=== PATIENT | male | born 1995 | race African-American/Black ===

== ENCOUNTER 2017-04-15 09:35 | Emergency (ER) | payer MEDICAID ==
[~2017-04-15] VITALS: Ht 177.8 cm; Wt 91.0 kg
[2017-04-15 09:56] VITALS: BP 106/82
[2017-04-15] MEDS ORDERED: ACETAMINOPHEN 325MG TABLET PO ONE (13:00)
[2017-04-15 14:02] LABS: CLARITY URINE CLEAR (CLEAR); COLOR URINE YELLOW (YELLOW); GLUCOSE URINE NEGATIVE (NEGATIVE); KETONES URINE NEGATIVE (NEGATIVE); LEUKOCYTE ESTERASE URINE 1+ (NEGATIVE); NITRITE URINE NEGATIVE (NEGATIVE); OCCULT BLOOD URINE NEGATIVE (NEGATIVE); PROTEIN URINE NEGATIVE (NEGATIVE); SPECIFIC GRAVITY URINE 1.025 (1.005-1.030)
== END 2017-04-15 13:54 | disposition home or self-care (01) ==
LOC: ER 09:35
DX: R31.9 Hematuria, unspecified (principal); R30.0 Dysuria; J45.909 Unspecified asthma, uncomplicated
CPT/HCPCS: 81001; 99283